=== PATIENT | female | born 1985 | race Caucasian/White ===

== ENCOUNTER 2018-02-04 14:30 | Inpatient (IN) | payer OTHER ==
[~2018-02-04] VITALS: Ht 165.1 cm; Wt 95.3 kg
== END 2018-02-27 11:20 | disposition home or self-care, planned readmission (81) | DRG 807 ==
LOC: LDR 02-25 05:52 → SURG-SUITE 02-25 15:59 → LDR 03-07 14:30
PROC: 10E0XZZ Delivery of Products of Conception, External Approach (ICD-10-PCS; principal; 2018-02-25)
PROC: 0UQGXZZ Repair Vagina, External Approach (ICD-10-PCS; 2018-02-25)
PROC: 0W8NXZZ Division of Female Perineum, External Approach (ICD-10-PCS; 2018-02-25)
PROC: 10907ZC Drainage of Amniotic Fluid, Therapeutic from Products of Conception, Via Natural or Artificial Opening (ICD-10-PCS; 2018-02-25)
PROC: 3E033VJ Introduction of Other Hormone into Peripheral Vein, Percutaneous Approach (ICD-10-PCS; 2018-02-25)
PROC: 4A1HXCZ Monitoring of Products of Conception, Cardiac Rate, External Approach (ICD-10-PCS; 2018-02-25)
DX: O71.4 Obstetric high vaginal laceration alone (principal); Z37.0 Single live birth; Z3A.39 39 weeks gestation of pregnancy; Z22.330 Carrier of Group B streptococcus

== ENCOUNTER 2020-03-15 10:24 | Outpatient (CLI) | payer OTHER | END 2020-03-15 10:56 | disposition home or self-care (01) | LOC: RX STUDY 10:24 | PROVIDERS: ATTEND Obstetrics & Gynecology | DX: N92.0 Excessive and frequent menstruation with regular cycle (principal) ==

== ENCOUNTER 2020-11-09 14:30 | Inpatient (IN) | payer OTHER ==
[~2020-11-09] VITALS: Ht 165.1 cm; Wt 93.0 kg
[2020-11-24] MEDS ORDERED: PRENATAL TABLE1 EAC1 PO (03:36)
== END 2020-11-26 14:20 | disposition home or self-care (01) | DRG 807 ==
LOC: OB/GYN 11-24 03:25 → LDR 11-24 03:25 → OB/GYN 11-24 05:31
PROVIDERS: ADMIT Obstetrics & Gynecology; ATTEND Obstetrics & Gynecology
PROC: 10E0XZZ Delivery of Products of Conception, External Approach (ICD-10-PCS; principal; 2020-11-24)
PROC: 0UQMXZZ Repair Vulva, External Approach (ICD-10-PCS; 2020-11-24)
PROC: 0W8NXZZ Division of Female Perineum, External Approach (ICD-10-PCS; 2020-11-24)
PROC: 10907ZC Drainage of Amniotic Fluid, Therapeutic from Products of Conception, Via Natural or Artificial Opening (ICD-10-PCS; 2020-11-24)
PROC: 4A1HXFZ Monitoring of Products of Conception, Cardiac Rhythm, External Approach (ICD-10-PCS; 2020-11-24)
DX: O71.82 Other specified trauma to perineum and vulva (principal); Z37.0 Single live birth; Z3A.37 37 weeks gestation of pregnancy; Z20.822 Contact with and (suspected) exposure to COVID-19